=== PATIENT | male | born 1955 | race African-American/Black ===

== ENCOUNTER → 2017-08-11 | Day surgery (SDC) | payer OTHER ==
[~2017-08-11] MED LIST: INSULIN ASPART 300 UNITS/3 ML INSULN.PEN SQ ONE; INSULIN REGULAR 100 UNIT/ML 10ML VIAL. ONE; INSULIN REGULAR 100 UNIT/ML 10ML VIAL. SQ ONE; IV RINGERS SOLUTION,LACTATED 1,000 ML BAG. IV ONE; IV RINGERS SOLUTION,LACTATED 1,000 ML IV ONE; IV RINGERS SOLUTION,LACTATED 1,000 ML IV SCH; LIDOCAINE 1% PF 2 ML VIAL. ID PRN; LIDOCAINE 2% PF Vial for OR 5 ML VIAL. ONE; PROPOFOL 20 ML IV ONE
[2017-08-11 09:57] VITALS: BP 144/86
== END ==
LOC: SURG 08:06
PROVIDERS: ATTEND Internal Medicine Gastroenterology
DX: K29.50 Unspecified chronic gastritis without bleeding (principal); K25.9 Gastric ulcer, unspecified as acute or chronic, without hemorrhage or perforation; I10 Essential (primary) hypertension; E11.9 Type 2 diabetes mellitus without complications; Z88.0 Allergy status to penicillin; Z79.4 Long term (current) use of insulin
CPT/HCPCS: 43239; 82947; J1815; J2704; J3010; J7120; J2001